=== PATIENT | male | born 1995 | race Caucasian/White ===

== ENCOUNTER 2023-03-20 04:52 | Emergency (ER) | payer SELFPAY ==
[2023-03-20 04:55] VITALS: BP 131/93; PULSE 93; RESP 20; TEMP 36.8; O2SAT 99
--- NOTE | 2023-03-20 05:12 | ED.GENADULT ---
HPI - General Adult General Chief complaint: Eye Problems Stated complaint: eye complaint Time Seen by Provider: 03/20/23 05:05 History of Present Illness HPI narrative: Patient 27-year-old gentleman who presents emergency department with chief complaint of left eye irritation. The patient reports that for last several days he has had discomfort in his left eye adenosis conjunctivas been read. The patient does wear contact lens Related Data Allergies Allergy/AdvReac Type Severity Reaction Status Date / Time No Known Allergies Allergy Verified 03/20/23 04:57 Review of Systems Review of Systems: A 10 system review of systems was completed on the patient and is negative except for what is stated in the HPI. Nursing and ancillary documentation was reviewed. Exam Narrative: GENERAL: Well-appearing, well-nourished, and in no acute distress. HEAD: Normocephalic, atraumatic. EYES: PERRLA and EOMI. injected conjunctiva of the left eye, no evidence of corneal ulcer no foreign body ENT: Nares clear, no rhinorrhea or epistaxis. Mucous membranes moist. NECK: Supple. CHEST: Clear to auscultation. No respiratory distress. HEART: Regular rate and rhythm. No murmur heard. Normal peripheral pulses. ABDOMEN: Soft, nontender, nondistended, normal active bowel sounds. EXTREMITIES: Normal range of motion. No edema. SKIN: Warm, dry, no rash. NEURO: No focal deficits. Alert and oriented x3. PSYCH: Normal mood and affect. Course Vital Signs Vital signs: Vital Signs Temperature 36.8 C 03/20/23 04:55 Pulse Rate 93 03/20/23 04:55 Respiratory Rate 20 03/20/23 04:55 Blood Pressure 131/93 H 03/20/23 04:55 Pulse Oximetry 99 03/20/23 04:55 Oxygen Delivery Room Air 03/20/23 04:55 Temperature 36.8 C 03/20/23 04:55 Pulse Rate 93 03/20/23 04:55 Respiratory Rate 20 03/20/23 04:55 Blood Pressure 131/93 H 03/20/23 04:55 Pulse Oximetry 99 03/20/23 04:55 Oxygen Delivery Room Air 03/20/23 04:55 Medical Decision Making [facility] Narrative Medical decision making narrative: differential diagnosis includes foreign body, corneal ulcer, corneal abrasion, conjunctivitis the patient was examined it had no evidence of foreign body no evidence of corneal ulcer. The patient will be started on antibiotic eyedrops Vital Signs Vital Signs: Vital Signs Temperature 36.8 C 03/20/23 04:55 Pulse Rate 93 03/20/23 04:55 Respiratory Rate 20 03/20/23 04:55 Blood Pressure 131/93 H 03/20/23 04:55 Pulse Oximetry 99 03/20/23 04:55 Oxygen Delivery Room Air 03/20/23 04:55 Temperature 36.8 C 03/20/23 04:55 Pulse Rate 93 03/20/23 04:55 Respiratory Rate 20 03/20/23 04:55 Blood Pressure 131/93 H 03/20/23 04:55 Pulse Oximetry 99 03/20/23 04:55 Oxygen Delivery Room Air 03/20/23 04:55 Discharge Plan Discharge Clinical Impression: Bacterial conjunctivitis Patient Disposition: Home, Self-Care Condition: Stable Instructions: Antibiotic Form, Conjunctivitis (ED) Prescriptions: New moxifloxacin [Vigamox] 0.5 % drops 1 drp EACH EYE TID 7 Days Qty: 3 0RF Follow-up/Referrals: [facility] [Outside] UNKNOWN,DOCTOR [Primary Care Provider] - Time of Disposition: 05:22
== END 2023-03-20 05:29 | disposition home or self-care (01) ==
PROVIDERS: Emergency Provider Emergency Medicine
DX: H10.89 Other conjunctivitis (principal)
CPT/HCPCS: 99283; A9270